=== PATIENT | female | born 1975 | race Caucasian/White ===

== ENCOUNTER 2017-01-19 10:31 | Emergency (ER) | payer BC ==
[~2017-01-19] VITALS: Ht 154.9 cm; Wt 55.3 kg
[2017-01-19] MEDS ORDERED: ZOLOFT50 MG PO (10:39)
== END 2017-01-19 11:40 | disposition home or self-care (01) ==
LOC: ED 10:31
DX: S93.401A Sprain of unspecified ligament of right ankle, initial encounter (principal); S40.011A Contusion of right shoulder, initial encounter; S80.211A Abrasion, right knee, initial encounter; F17.200 Nicotine dependence, unspecified, uncomplicated; Z88.6 Allergy status to analgesic agent; Z79.899 Other long term (current) drug therapy; Z29.12 Encounter for prophylactic antivenin; W10.9XXA Fall (on) (from) unspecified stairs and steps, initial encounter; Y93.89 Activity, other specified; Y92.89 Other specified places as the place of occurrence of the external cause; Y99.9 Unspecified external cause status

== ENCOUNTER → 2019-10-26 | Day surgery (SDC) | payer BC ==
[2019-10-26] VITALS (7 sets, daily range): BP systolic 105–130; BP diastolic 50–82
[~2019-10-26] VITALS: Ht 154.9 cm; Wt 52.2 kg
[~2019-10-26] MED LIST: DOXYCYCLINE100 M3 PO; DULOXETINE HCL60 MG PO; ULTRAM50 MG PO; XARELTO10 MG PO; ZOLOFT50 MG PO; ZOLPIDEM TART5 MG PO
[2019-10-27 14:07] LABS: ACID FAST SPEC PROCESSING Tissue Grinding (.)
== END | disposition home or self-care (01) ==
LOC: SDC 10-20 14:00
PROVIDERS: Podiatrist
DX: M19.071 Primary osteoarthritis, right ankle and foot (principal); M20.11 Hallux valgus (acquired), right foot; I70.211 Atherosclerosis of native arteries of extremities with intermittent claudication, right leg; M24.571 Contracture, right ankle; F41.9 Anxiety disorder, unspecified; Z87.891 Personal history of nicotine dependence; Z98.51 Tubal ligation status